=== PATIENT | male | born 1970 | race Caucasian/White ===

== ENCOUNTER → 2016-07-23 | Outpatient (CLI) | payer OTHER | LOC: CARD 10:46 | PROVIDERS: ATTEND Family Medicine | DX: R00.2 Palpitations (principal) | CPT/HCPCS: 93005 ==

== ENCOUNTER → 2016-10-31 | Outpatient (CLI) | payer OTHER ==
--- NOTE | 2016-10-31 18:57 | Diagnostic Imaging Report ---
Three views of the right knee. INDICATION: Right knee pain. FINDINGS: No fracture, dislocation or radiopaque foreign body seen. No definite joint effusion. Very minimal osteophytes are noted. IMPRESSION: Minimal degenerative changes. Dictated by: Dictated on workstation # [id number]
== END ==
LOC: RAD 16:01
PROVIDERS: ATTEND Family Medicine
DX: M25.561 Pain in right knee (principal)
CPT/HCPCS: 73562